=== PATIENT | female | born 1955 | race Caucasian/White ===

== ENCOUNTER 2016-08-18 05:19 | Inpatient (IN) | payer OTHER ==
[~2016-08-18] VITALS: Ht 167.6 cm; Wt 78.0 kg
[~2016-08-18 05:19] MED LIST: ANSAID100 MG PO; OMEPRAZOLE20 MG PO; REMICADE10 MG/ML IV
[2016-08-18] MEDS ORDERED: VITAMIN D2000 UNI1 PO (06:22)
[2016-08-18 06:24] VITALS: BP 110/69
[2016-08-18 06:29] LABS: CHLORIDE 109 mEq/L (99-109); POTASSIUM 3.9 mEq/L (3.7-5.4); SODIUM 141 mEq/L (136-147)
[2016-08-18 06:31] LABS: GLUCOSE 97 mg/dL (70-99)
[2016-08-18 06:32] LABS: ANION GAP 9 MEQ/L (2-14)
[2016-08-18 06:35] LABS: GFR ESTIMATE (CALCULATED) > 59 mL/min/
[2016-08-18 06:36] LABS: UREA NITROGEN (BUN) 18 mg/dL (9-23)
[2016-08-18 17:00] VITALS: BP 124/70
[2016-08-18 20:00] VITALS: BP 117/66
[2016-08-18 23:32] VITALS: BP 99/55
[2016-08-19 04:00] VITALS: BP 90/50
[2016-08-19 05:30] VITALS: BP 90/50
[2016-08-19] MEDS ORDERED: CYCLOBENZAPRINE10 MG PO (08:09)
[2016-08-19] MEDS ORDERED: HYDROCODON-ACE1 EAC7 PO (08:09)
[2016-08-19 08:49] VITALS: BP 93/55
[2016-08-19 11:14] VITALS: BP 89/53
[2016-08-19 15:58] VITALS: BP 109/62
== END 2016-08-19 17:48 | disposition home or self-care (01) | DRG 460 ==
LOC: 2SOUTH 05:19 → 3EAST 16:39
PROVIDERS: Neurological Surgery
DX: M43.16 Spondylolisthesis, lumbar region (principal); K51.90 Ulcerative colitis, unspecified, without complications; M48.06 Spinal stenosis, lumbar region; Z87.891 Personal history of nicotine dependence; M35.9 Systemic involvement of connective tissue, unspecified; M16.11 Unilateral primary osteoarthritis, right hip; M54.16 Radiculopathy, lumbar region; I73.9 Peripheral vascular disease, unspecified
CPT/HCPCS: 72100; 76000; 80048; 86850; 86900; 86901; 94799; J0131; J0690; J1100; J1170; J1580; J2250; J2405; J2710; J2930; J3010; J3370; J3480; J7030; S0020